=== PATIENT | male | born 1955 | race Caucasian/White ===

== ENCOUNTER 2023-02-27 12:56 | Emergency (ER) | payer MEDICARE, SELFPAY ==
[2023-02-27 13:11] VITALS: BP 166/87; PULSE 68; RESP 18; TEMP 36.6; O2SAT 98; BMI 31.4
--- NOTE | 2023-02-27 13:20 | CT_ITS ---
[address] [address] Patient Name: YOLANDA OKEEFE MRN: [id number] date: 1955 Sex: M Assigned Patient Location: ER Current Patient Location: Accession/Order Number: [id number] Exam Date: 02/27/2023 14:40 Report Date: 02/27/2023 15:41 At the request of: CEDRIC ROMERO Procedure: CT angio chest EXAMINATION: CT angio chest INDICATION: Pleuritic chest pain. COMPARISON: None. TECHNIQUE: Following the administration of intravenous contrast, helical imaging of the chest was performed using PE protocol. Multiplanar reformatted images and MIP sequences were reconstructed. Dose reduction techniques were achieved by using: automated exposure control and/or adjustment of mA and /or kV according to patient size and/or use of iterative reconstruction technique. FINDINGS: TUBES & LINES: None. LOWER NECK: No significant abnormality. CHEST: Great vessels: Adequate opacification of the pulmonary arteries. No abnormal intraluminal filling defects within the pulmonary arteries. Normal caliber central pulmonary arteries. No right heart strain. Nonaneurysmal thoracic aorta. No aortic dissection. Heart & Pericardium: The heart is normal in size. No pericardial effusion. Lymph nodes & Mediastinum: No thoracic adenopathy. Normal esophagus. Airways, Lungs & Pleura: Patent central airways. Mild dependent atelectasis. No acute infiltrative process. Right upper lobe solid 3 mm nodule and left upper lobe 2 mm nodule. No pleural effusion or pneumothorax. UPPER ABDOMEN: Left hepatic lobe 9 mm cyst. MUSCULOSKELETAL: Soft tissues: Unremarkable soft tissues. Bones: No acute osseous abnormality or suspicious osseous lesion. CT/CT angio chest IMPRESSION: 1. No pulmonary embolism or other acute process identified in the chest. 2. Bilateral upper lobe 2 and 3 mm nodules. If this is a high-risk patient, consider follow-up CT of the chest in one year. Electronically authenticated by: BITA TREJO Date: 02/27/2023 15:41
--- NOTE | 2023-02-27 13:20 | ECG_ITS ---
[facility] Test Date: 2023-02-27 Pat Name: YOLANDA OKEEFE Department: Room: - Gender: Male [employer]: : 1955 Requested By: [id number] Order Number: [id number] Reading MD: WILLY MORENO Measurements Intervals [place] Rate: 54 P: 4 [place]: 200 QRS: -5 QRSD: 100 T: 43 QT: 434 QTc: 420 Interpretive Statements 1100 Sinus rhythm 9110 normal ECG No previous ECG available for comparison Electronically Signed On 02-28-2023 13:10:03 EDT by WILLY MORNEO
--- NOTE | 2023-02-27 13:23 | ED_ITS ---
HPI - General Adult General Chief complaint: Back Pain/Injury Stated complaint: FLANK PAIN Time Seen by Provider: 02/27/23 13:03 Source: patient Mode of arrival: walk-in History of Present Illness HPI narrative: 67-year-old male presents to the Emergency Room with concerns of right sided chest wall pain. States symptoms started six weeks ago, progressively worsening, today feels like pain is moving more up into his chest. He denies feeling short of breath but states with any deep breath he gets sharp pain in the lateral aspect of his chest. He reports no dyspnea on exertion. Pain with movement but mostly with deep breathing. He denies any recent illness or long travels or flights. No prior history of PE or deep vein thrombosis. Patient is planning to go to [place] for four days in the near future. He should notes pain currently 7/10 sharp in the right lateral chest wall. Patient had a fall remotely but no recent injury. denies cough or dysuria. Denies abdominal pain. Bowel movements have been regular and urinating without difficulty or hematuria Related Data Previous Rx's Medication Instructions Recorded naproxen 500 mg tablet 500 mg PO BID PRN pain #20 tabs 02/27/23 Allergies Allergy/AdvReac Type Severity Reaction Status Date / Time No Known Drug Allergies Allergy Verified 02/27/23 13:11 Review of Systems ROS Constitutional Denies: fever or chills Ears, nose, mouth, and throat Denies: throat pain, neck pain or throat swelling Cardiovascular Reports: chest pain; Denies: palpitations, edema, shortness of breath with exertion or shortness of breath when lying down Respiratory Reports: pain on inspiration; Denies: shortness of breath or cough Gastrointestinal Denies: abdominal pain, nausea or vomiting Genitourinary Denies: painful urination or urinary frequency Musculoskeletal Reports: back pain (right flank and lateral chest wall); Denies: neck pain Integumentary/Breast Denies: rash Neurological Denies: headache or numbness in extremities Endocrine Denies: excessive urination Allergic/Immunologic Denies: hives Exam Narrative Exam Narrative: Nurses notes and vital signs reviewed and patient is not hypoxic. General: The patient appears well and in no apparent distress. Patient is resting comfortably on cart. Skin: Warm, dry, no pallor noted.no evidence of zoster-like rash.she denies rash in this region. Head: Normocephalic, atraumatic Neck: Supple, trachea mid-line, no tenderness, no lymphadenopathy Eye: Pupils are equal, round and reactive to light, EOMI Ears, Nose, Mouth, and Throat: TM are clear, normal light reflex, oral mucosa is moist, no posterior oropharynx erythema or hypertrophy, uvula is mid-line Cardiovascular: Regular Rate and Rhythm Respiratory: Patient is in no distress, no accessory muscle use, lungs are clear to auscultation, no wheezing, rales or rhonchi. Chest Wall: no tendernessto palpation, minimal soreness right lateral ribs but no crepitus. A she notes pain is worse with deep breath. Back: non-tender, no CVA tendernessPain to the parathoracic right side that is very mild on palpation. Musculoskeletal: normal ROM, no tenderness, no swelling GI: Normal bowel sounds, no tenderness to palpation, no masses appreciated. No rebound, guarding, or rigidity noted.will scar from appendectomy as a child, right upper quadrant tenderness Neurological: A&O x4 Psychiatric: Cooperative Constitutional Vital Signs, click to edit/add: Last Vital Signs Temp 97.8 F 02/27/23 13:11 Pulse 68 02/27/23 13:11 Resp 18 02/27/23 13:11 BP 166/87 H 02/27/23 13:11 Pulse Ox 98 02/27/23 13:11 Course Vital Signs Vital signs: Vital Signs Temperature 97.8 F 02/27/23 13:11 Pulse Rate 68 02/27/23 13:11 Respiratory Rate 18 02/27/23 13:11 Blood Pressure 166/87 H 02/27/23 13:11 Pulse Oximetry 98 02/27/23 13:11 Temperature 97.8 F 02/27/23 13:11 Pulse Rate 68 02/27/23 13:11 Respiratory Rate 18 02/27/23 13:11 Blood Pressure 166/87 H 02/27/23 13:11 Pulse Oximetry 98 02/27/23 13:11 Medical Decision Making [facility] Narrative Medical decision making narrative: patient presents with pleuritic chest pain, symmptoms progressing over six weeks, 10 effecting tolerance to ADLs. Denies shortness of breath. Vital signs stable. Patient be given Toradol for pain, recommend CT of the chest for further evaluation as he is without any recent chest wall injury. Rule out PE. Discussed possibility of pleurisy that he is without recent illness. patient reevaluated at 2:23 PM. Discussed initial laboratory studies and EKG, patient notes pain subsided slightly with the Toradol resting comfortably awaiting CTA of the chest. Still notes pain on deep inspiration. issues resting comfortably, CTA of the chest without evidence of PE, incidental findings of pulmonary nodules recommend repeat CT scan in one year, patient was given a copy of this report with instructions to follow-up. We discussed inflammation in his chest wall typically improved with Motrin and naproxen. Recommend taking naproxen twice a day for pain, return to the Emergency Room if symptoms worsen or new symptoms develop. The patient is to followup with primary care physician in next 2-3 days or to return to the emergency department should any of the signs or symptoms worsen or new symptoms develop. Patient had questions answered. The patient agrees with the following Diagnosis and Treatment plan and the patient will be discharged home. Medical Records Medical records narrative: patient reports a month or two ago undergoing a cardiac evaluation with stress test, reports that was negative for any cardiac disease Lab Data Labs: Lab Results 02/27/23 Range/Units 13:35 WBC 8.7 (4.0-11.0) 10^3/uL RBC 4.52 L (4.70-6.10) 10^6/uL Hgb 13.1 L (14.0-18.0) g/dL Hct 38.2 L (42.0-54.0) % MCV 84.5 (80.0-94.0) fL MCH 29.0 (25.9-34.0) pg MCHC 34.3 (29.9-35.2) g/dL RDW 13.1 (11.0-15.0) % Plt Count 221 (150-450) 10^3/uL MPV 9.9 (9.5-13.5) fL Seg Neuts % (Manual) 41.0 Lymphocytes % (Manual) 29.0 (20.5-60.0) % Monocytes % (Manual) 5.0 (1.7-12.0) % Eosinophils % (Manual) 24.0 H (0.9-7.0) % Basophils % (Manual) 0.0 L (0.2-2.0) % Neutrophils # (Manual) 3.56 (1.4-6.5) 10^3/uL Lymphocytes # (Manual) 2.52 (1.20-3.80) 10^3/uL Monocytes # (Manual) 0.43 (0.30-0.80) 10^3/uL Eosinophils # (Manual) 2.08 H (0.00-0.70) 10^3/uL Basophils # (Manual) 0.00 (0.00-0.10) 10^3/uL Sodium 140 (136-145) mmol/L Potassium 4.1 (3.5-5.1) mmol/L Chloride 105 (98-107) mmol/L Carbon Dioxide 25.0 (21.0-32.0) mmol/L Anion Gap 14.1 BUN 21.0 H (7.0-18.0) mg/dL Creatinine 1.11 (0.70-1.30) mg/dL Est GFR ( Amer) >60 (>=60) Est GFR (Non-Af Amer) >60 (>=60) BUN/Creatinine Ratio 18.9 Glucose 108 H (74-106) mg/dL Calcium 8.8 (8.5-10.1) mg/dL Total Bilirubin 0.4 (0.2-1.0) mg/dL AST 24 (15-37) U/L ALT 31 (16-63) U/L Alkaline Phosphatase 70 (46-116) U/L Troponin I High Sens 5.5 (4.0-76.1) pg/mL Total Protein 7.5 (6.4-8.2) g/dL Albumin 3.9 (3.4-5.0) g/dL Globulin 3.6 g/dL Albumin/Globulin Ratio 1.1 Lipase 79.0 (73.0-393.0) U/L Urine Color Lt. yellow (YELLOW) Urine Clarity Clear (CLEAR) Urine pH 6.0 (5.0-9.0) Ur Specific [place] 1.020 (1.005-1.025) Urine Protein 100 A (NEG/TRACE) mg/dL Urine Glucose (UA) Negative (NEGATIVE) mg/dL Urine Ketones Negative (NEGATIVE) mg/dL Urine Occult Blood Small A (NEGATIVE) Urine Nitrite Negative (NEGATIVE) Urine Bilirubin Negative (NEGATIVE) Urine Urobilinogen 0.2 (0.2-1.0) EU/dL Ur Leukocyte Esterase Negative (NEGATIVE) Urine RBC 0-2 (0-2) #/HPF Urine WBC None seen (NONE SEEN) #/HPF Ur Squamous Epith Cells Rare (NONE/RARE) #/LPF Urine Bacteria None seen (NONE SEEN) #/HPF Urine Mucus None seen (NONE SEEN) Ur Culture Indicated? No Imaging Data CT scan - chest: Radiologist's impression: Procedure: CT angio chest EXAMINATION: CT angio chest INDICATION: Pleuritic chest pain. COMPARISON: None. TECHNIQUE: Following the administration of intravenous contrast, helical imaging of the chest was performed using PE protocol. Multiplanar reformatted images and MIP sequences were reconstructed. Dose reduction techniques were achieved by using: automated exposure control and/or adjustment of mA and /or kV according to patient size and/or use of iterative reconstruction technique. FINDINGS: TUBES & LINES: None. LOWER NECK: No significant abnormality. CHEST: Great vessels: Adequate opacification of the pulmonary arteries. No abnormal intraluminal filling defects within the pulmonary arteries. Normal caliber central pulmonary arteries. No right heart strain. Nonaneurysmal thoracic aorta. No aortic dissection. Heart & Pericardium: The heart is normal in size. No pericardial effusion. Lymph nodes & Mediastinum: No thoracic adenopathy. Normal esophagus. Airways, Lungs & Pleura: Patent central airways. Mild dependent atelectasis. No acute infiltrative process. Right upper lobe solid 3 mm nodule and left upper lobe 2 mm nodule. No pleural effusion or pneumothorax. UPPER ABDOMEN: Left hepatic lobe 9 mm cyst. MUSCULOSKELETAL: Soft tissues: Unremarkable soft tissues. Bones: No acute osseous abnormality or suspicious osseous lesion. IMPRESSION: 1. No pulmonary embolism or other acute process identified in the chest. 2. Bilateral upper lobe 2 and 3 mm nodules. If this is a high-risk patient, consider follow-up CT of the chest in one year. Electronically authenticated by: BITA TREJO Date: 02/27/2023 15:41 ECG Data Attestation: I personally reviewed and interpreted this ECG as follows: Interpretation: EKG interpretation: Emergency Department physician interpretation, 54 bpm normal sinus rhythm, no ectopy, no ST segment elevation, normal axis. Discharge Plan Discharge Chief Complaint: Back Pain/Injury Clinical Impression: Chest wall pain, Pleurisy Patient Disposition: Home, Self-Care Time of Disposition Decision: 15:47 Condition: Good Mode of Transportation: Private Vehicle Prescriptions / Home Meds: New naproxen 500 mg tablet 500 mg PO BID PRN (Reason: pain) Qty: 20 0RF Rx Instructions: take with food Instructions: Pleurisy (ED), Chest Wall Pain (ED) Stand Alone Forms: Portal Instructions Referrals: BRIANNA KAMINSKI [Primary Care Provider] - 1 week Discharge Date/Time: 02/27/23 15:57
[2023-02-27 13:43] VITALS: PULSE 56
[2023-02-27 13:47] LABS: Bilirubin Urine NEGATIVE (NEGATIVE); Blood Urine SMALL (NEGATIVE); Clarity Urine CLEAR (CLEAR); Color Urine LT. YELLOW (YELLOW); Glucose Urine UA NEGATIVE (NEGATIVE); Ketones Urine NEGATIVE (NEGATIVE); Leukocyte Esterase Urine NEGATIVE (NEGATIVE); Nitrite Urine NEGATIVE (NEGATIVE); Protein Urine 100 mg/dL (NEG/TRACE); Urobilinogen Urine 0.2 EU/dL (0.2-1.0)
[2023-02-27] MEDS: KETOROLAC TROMETHAMINE 30 MG/ML VIAL IVP (13:48)
[2023-02-27] MEDS: 0.9 % SODIUM CHLORIDE 1,000 ML 999 ML IV (13:49)
[2023-02-27 13:52] LABS: Urine Microscopic Indicated YES
[2023-02-27 13:55] LABS: Hematocrit 38.2 % (42.0-54.0); Hemoglobin 13.1 g/dL (14.0-18.0); Mean Corpuscular HGB Conc 34.3 g/dL (29.9-35.2); Mean Corpuscular Volume 84.5 fL (80.0-94.0); Mean Platelet Volume 9.9 fL (9.5-13.5); Platelet Count 221 10^3/uL (150-450); Red Blood Count 4.52 10^6/uL (4.70-6.10); Red Cell Distribution Width 13.1 % (11.0-15.0); White Blood Count 8.7 10^3/uL (4.0-11.0)
[2023-02-27 14:07] LABS: WBC Urine NONE SEEN #/HPF (NONE SEEN)
[2023-02-27 14:08] LABS: Bacteria Urine NONE SEEN #/HPF (NONE SEEN); Mucus Urine NONE SEEN (NONE SEEN); RBC Urine 0-2 #/HPF (0-2); Squamous Epithelial Cell Urine RARE #/LPF (NONE/RARE)
[2023-02-27 14:09] LABS: Troponin I High Sensitivity 5.5 pg/mL (4.0-76.1)
[2023-02-27 14:11] LABS: Urine Culture Indicated NO
[2023-02-27 14:16] LABS: Alanine Aminotransferase 31 U/L (16-63); Albumin Globulin Ratio 1.1; Albumin Level 3.9 g/dL (3.4-5.0); Alkaline Phosphatase 70 U/L (46-116); Anion Gap 14.1; Aspartate Amino Transferase 24 U/L (15-37); BUN Creatinine Ratio 18.9; Bilirubin Total 0.4 mg/dL (0.2-1.0); Calcium 8.8 mg/dL (8.5-10.1); Chloride 105 mmol/L (98-107); Estimated GFR (African America >60 (>=60); Estimated GFR (Non-African Ame >60 (>=60); Globulin 3.6 g/dL; Glucose 108 mg/dL (74-106); Potassium 4.1 mmol/L (3.5-5.1); Sodium 140 mmol/L (136-145); Total Protein 7.5 g/dL (6.4-8.2)
[2023-02-27 14:22] LABS: Lymphocytes Absolute Manual 2.52 10^3/uL (1.20-3.80); Monocytes Absolute Manual 0.43 10^3/uL (0.30-0.80); Segmented Neut Absolute Manual 3.56 10^3/uL (1.4-6.5)
[2023-02-27 14:23] LABS: Eosinophils Absolute Manual 2.08 10^3/uL (0.00-0.70)
== END 2023-02-27 15:57 | disposition home or self-care (01) ==
PROVIDERS: Personal Emergency Response Attendant; Emergency Provider Emergency Medicine; PCP Internal Medicine
DX: R09.1 Pleurisy (principal); R07.89 Other chest pain; Z91.81 History of falling
CPT/HCPCS: 36415; 71275; 80053; 81001; 83690; 84484; 85027; 93005; 96374; 99285; Q9967